=== PATIENT | female | born 1970 | race Caucasian/White ===

== ENCOUNTER 2019-01-12 10:02 | Day surgery (SDC) | payer OTHER, SELFPAY ==
--- NOTE | 2019-01-12 07:04 | W.COLOREPORT ---
Date of service: 01/12/19 Time of Service: 11:04 Colonoscopy Report Date of procedure: 01/12/19 Pre-op diagnosis general: Colon Cancer Screening Post-op diagnosis procedure note: other (sigmoid polyps and mild diverticulosis) Procedure: Colonoscopy with polypectomy by cold forceps Surgeon: Arcelia Carlson Anesthesia proc note operative: other (General/ ASA 2/Evelio Valdez, BLANCO) Estimated blood loss (mL): 3 Pathology: other (sigmoid polyps x2) Complications: None Disposition: same day Indications: The patient is here for Colonoscopy pre-op. She has no family history of colon cancer. She has not had any bowel habit changes. -Discussed colonoscopy bowel prep as well as the procedure. Discussed possible complications of the procedure to include bleeding, pain, perforation, missed small lesion/polyp, sore throat, aspiration and adverse reaction to the medications. Questions were answered to patient?s satisfaction. No guarantees were implied or given. Prep: Miralax/Dulcolax Procedure Start Time: 11:04 Procedure End Time: 11:25 Retraction Time: 13 minutes Findings: 2 small <1 cm sigmoid polyps Procedure Description: After informed consent was obtained the patient was taken to the procedure room and placed in a left decubitous position. Monitors were applied and a time out was done. The patients name, date of , procedure, allergies to medications and metal in their body was reviewed. The patient was then sedated. Once sedated and comfortable a rectal exam was done. External exam was normal. Internal exam revealed a normal sphincter tone and no palpable masses. The scope was then introduced and retro-flexed. No internal hemorrhoids, masses or polyps were identified on retro-flexion. The scope was then advanced to the cecum without difficulty. The TI and appendiceal orifice were identified. The prep was good. The scope was then slowly retracted over 13 minutes back into the rectum. Polyps were removed with cold forceps in the sigmoid polyp. There was mild diverticulosis in the sigmolid colon. The scope was removed and the patient was woken up and taken back to Same day surgery in stable condition. The patient tolerated the procedure well and there were no immediate complications. Follow up: The patient should follow up in 3-5 years unless they develop changes in bowel habits or other new gastrointestinal complaints.
--- NOTE | 2019-01-12 07:06 | W.PM.DSUDISC ---
Discharge Plan Disposition Patient Disposition: HOME Condition: Good Discharge Details Reason For Visit: Colon Cancer Screening Attending Provider: Arcelia Carlson Primary Care Provider: Gardenia Montano Home Meds and New Rx's Prescriptions: Continued ferrous sulfate [Feosol] 325 mg (65 mg iron) tablet 325 mg PO DAILY RF: 0 ibuprofen-diphenhydramine cit [Advil PM] 200-38 mg tablet 2 cap PO QHS RF: 0 norethindrone-ethin estradiol 1-35 mg-mcg tablet 1 tab PO DAILY RF: 0 mv,iron,guv-XQ-vwqdoht cmb.24 400 mcg tablet PO DAILY RF: 0 propranolol 60 mg tablet 60 mg PO BID RF: 0 Discontinued polyethylene glycol 3350 17 gram/dose powder 238 g PO ONCE Qty: 238 RF: 0 bisacodyl [Dulcolax (bisacodyl)] 5 mg tablet,delayed release (DR/EC) 5 mg PO ONCE Qty: 4 RF: 0 Discharge Instructions Instructions: Colonoscopy (DC), Colorectal Polyps (DC), Diverticulosis (DC) Additional Instructions: Findings: Mild diverticulosis Sigmoid polyps Follow up: 3-5 years Please call if you develop: fevers >101.5 Nausea or Vomiting Abdominal pain that is not transient DAY SURGERY UNIT POST ENDOSCOPY INSTRUCTIONS 1. Because there will be medication in your system for the next 24 hours, you may feel a little sleepy. Your coordination will be affected. Therefore: a. Do not drive or operate dangerous equipment for 24 hours. b. Do not drink alcohol beverages for 24 hours (not even beer). c. Plan to go home and rest for the day. 2. Generally there are no restrictions on your activity after a day or so has gone by, but you may feel a bit fatigued for a few days. 3 After you arrive home you may have a light meal and return to a normal diet as you can tolerate it without feeling sick to your stomach. 4. After surgery, you may feel pain or discomfort. This should be only transient, but if it persists please contact your doctor. 5. If there are any questions regarding the findings of your procedure, please feel free to contact your doctor. 6. If you are unable to contact your doctor with a problem, contact the hospital at [phone]. 7. Continue all your regular medications unless directed otherwise. I understand the above instructions and have no questions. Signature of Patient or Responsible Adult Escort Date/Time Name of Responsible Adult Escort Signature of Nurse Date/Time Activity:: Activity as Tolerated Diet:: High Fiber diet Discharge Orders Discharge Orders: Discharge Order (Routine); Ordered 01/12/19 Ordered By: Arcelia Carlson DS: Diagnosis Discharge Diagnosis (1) S/P colonoscopy: Status: Acute (2) Diverticulosis: Status: Acute (3) Colorectal polyps: Status: Acute
[2019-01-12 10:28] VITALS: BP 138/75; PULSE 71; RESP 16; TEMP 35.6; O2SAT 99
[2019-01-12] MEDS: Lactated Ringers 1,000 ML 80 ML IV (10:48)
--- NOTE | 2019-01-12 11:25 | BOWEL_PTH ---
PATIENT: Kerry Griggs LOC: [facility] U#:[id number] AGE/SX: 49/F ROOM: RE01/12/[address]: Arcelia Carlson MD : 1970 BED: DIS: 01/12/2019 SPEC #: [id number] RECD: 01/12/19 13:04 STATUS: MILDRED REQ #: [id number] SANGEETHA: 01/12/19 11:[address]: Arcelia Carlson DEPT: Surgical Specimen RECD BY: Gia Crews ENTERED: 01/12/19 13:05 SP TYPE: Bowel OTHR DR: Gardenia Montano Tissues: 1 - BIOPSY BOWEL Procedures: GROSS AND MICRO LEVEL 4 Comments: [id number]
[2019-01-12 12:10] VITALS: BP 128/73; PULSE 61; RESP 14; TEMP 36.3; O2SAT 100
== END 2019-01-12 12:15 | disposition home or self-care (01) ==
LOC: SUR 10:02
PROVIDERS: PCP Nurse Practitioner Family; Visit Provider Surgery
PROC: 0DJD8ZZ Inspection of Lower Intestinal Tract, Via Natural or Artificial Opening Endoscopic (ICD-10-PCS; CPT 45378; principal; 2019-01-12 11:30)
DX: Z12.11 Encounter for screening for malignant neoplasm of colon (principal); K63.5 Polyp of colon; K57.30 Diverticulosis of large intestine without perforation or abscess without bleeding
CPT/HCPCS: 45380; 88305

== ENCOUNTER 2019-04-24 12:14 | Outpatient (REF) | payer OTHER, SELFPAY ==
[2019-04-24 18:39] LABS: Iron 101 ug/dL (50-170); Total Iron Binding Capacity 384 ug/dL (250-450); Transferrin Sat 26 % (15-50)
[2019-04-24 18:42] LABS: HCT 36.9 % (36.0-46.0); HGB 12.6 g/dL (12.0-15.5); Mean Corp. HGB Concentration 34.1 g/dL (32.0-36.0); Mean Corpuscular Hemoglobin 32.3 pg (27.0-33.0); Mean Corpuscular Volume 94.6 fL (80-95); Mean Platelet Volume 10.6 fL (8.0-11.0); Platelet Count 318 x1000/uL (130-400); RBC Distribution Width 12.8 % (11.7-14.6); White Blood Cell Count 4.59 k/cumm (4.4-10.8)
[2019-04-24 18:55] LABS: Folate 6.4 ng/mL (8.6-20.0)
== END 2019-04-24 12:34 ==
LOC: NCHCN 12:14
PROVIDERS: PCP Nurse Practitioner Family; Visit Provider Nurse Practitioner Family
DX: D52.9 Folate deficiency anemia, unspecified (principal); D64.9 Anemia, unspecified
CPT/HCPCS: 85027; 82746; 83540; 83550

== ENCOUNTER 2019-11-04 09:48 | Outpatient (REF) | payer OTHER, SELFPAY ==
[2019-11-08 13:33] LABS: SARS-CoV-2 RNA Undetected (Undetected); SARS-CoV-2 Specimen Source Nasopharynx
== END 2019-11-04 10:08 ==
LOC: NCHCN 09:48
PROVIDERS: PCP Nurse Practitioner Family; Visit Provider Nurse Practitioner Family
DX: Z20.828 Contact with and (suspected) exposure to other viral communicable diseases (principal)
CPT/HCPCS: U0003

== ENCOUNTER 2020-04-29 14:44 | Outpatient (REF) | payer OTHER, SELFPAY ==
--- NOTE | 2020-04-29 11:45 | PAPFT_PTH ---
[facility] Griggs [id number]GE[facility]SX: 50/F ROOM: RE04/29/[address]: Gardenia Montano : 1970 BED: DIS: 04/29/2020 SPEC #: [id number] RECD: 04/29/20 18:19 STATUS: MILDRED REMarcos #: [id number] SANGEETHA: 04/29/20 11:[address]: Gardenia Montano DEPT: [facility] Cytology RECD BY: Gia Crews Tissues: 1 - CX/ENDOCX FOR PAP SMEARS Procedures: PAP THIN PREP/UVM Screening HPV DNA PROBE Comments: [id number]
[2020-04-29 19:29] LABS: HGB 12.1 g/dL (11.2-15.7); MCH 33.2 pg (27.0-33.0); MCHC 34.6 % (32.0-36.0); MCV 95.9 fL (80-95); MPV 10.9 fL (8.0-11.0); Platelet Count 287 10^3/uL (130-400); RBC 3.65 10^6/uL (3.93-5.22); RDW 12.5 % (11.7-14.6); RDW-SD 43.9 fL; WBC 6.78 10^3/uL (4.4-10.8)
[2020-04-29 20:01] LABS: Anion Gap 10.1 mmol/L (3-11); BUN 12 mg/dL (7-18); CO2 25.9 mmol/L (21.0-32.0); CREATININE 0.7 mg/dL (0.55-1.02); Calculated LDL 134 mg/dL (<100); Chloride 102 mmol/L (98-107); Cholesterol 223 mg/dL (<200); Glucose 84 mg/dL (74-106); HDL Cholesterol 74 mg/dL (40-60); Sodium 138 mmol/L (136-145); Triglyceride 79 mg/dL (<150)
[2020-04-29 20:04] LABS: Folate > 20.0 ng/mL (8.6-20.0)
== END 2020-04-29 14:45 | disposition home or self-care (01) ==
LOC: NCHCN 14:44
PROVIDERS: PCP Nurse Practitioner Family; Visit Provider Nurse Practitioner Family
DX: Z00.00 Encounter for general adult medical examination without abnormal findings (principal); Z13.228 Encounter for screening for other metabolic disorders; Z13.220 Encounter for screening for lipoid disorders; D52.9 Folate deficiency anemia, unspecified; Z12.4 Encounter for screening for malignant neoplasm of cervix; Z11.51 Encounter for screening for human papillomavirus (HPV)
CPT/HCPCS: 80048; 80061; 85027; 88142; 82746; 87624

== ENCOUNTER 2021-11-07 18:13 | Outpatient (REF) | payer OTHER, SELFPAY ==
[2021-11-07 16:26] LABS: Anion Gap 10.2 mmol/L (3-11); BUN 15 mg/dL (7-18); CO2 27.8 mmol/L (21.0-32.0); CREATININE 0.6 mg/dL (0.55-1.02); Calcium 9.4 mg/dL (8.5-10.1); Calculated LDL 145 mg/dL (<100); Chloride 102 mmol/L (98-107); Cholesterol 229 mg/dL (<200); Glucose 104 mg/dL (74-106); HDL Cholesterol 65 mg/dL (40-60); Potassium 4.3 mmol/L (3.5-5.1); Sodium 140 mmol/L (136-145); Triglyceride 95 mg/dL (<150)
== END 2021-11-07 18:14 | disposition home or self-care (01) ==
LOC: NCHCN 18:13
PROVIDERS: PCP Nurse Practitioner Family; Visit Provider Nurse Practitioner Family
DX: Z00.00 Encounter for general adult medical examination without abnormal findings (principal); Z13.220 Encounter for screening for lipoid disorders; Z13.228 Encounter for screening for other metabolic disorders
CPT/HCPCS: 80048; 80061